=== PATIENT | male | born 1940 | race Caucasian/White ===

== ENCOUNTER → 2016-11-29 | Outpatient (REF) | payer MEDICARE | LOC: M LAB REF 09:30 | DX: C44.311 Basal cell carcinoma of skin of nose (principal) ==

== ENCOUNTER → 2021-07-28 | Outpatient (REF) | payer MEDICARE ==
[2021-07-28 14:16] LABS: CREATININE, URINE 93.2 MG/DL; MALB URINE SIEMENS 18.4 MG/L; MAU/CREAT RATIO 19.7 MCG/MG (0.0-30.0)
== END ==
LOC: M LAB REF 12:49
PROVIDERS: ATTEND Nurse Practitioner Family
DX: E11.65 Type 2 diabetes mellitus with hyperglycemia (principal)

== ENCOUNTER 2024-06-12 07:41 | Day surgery (SDC) | payer MEDICARE ==
[~2024-06-12] VITALS: Ht 165.1 cm; Wt 80.6 kg
[~2024-06-12 07:41] MED LIST: ATOR40TA75 PO; FAMO20TA PO; GARL500C6 PO; LISI10TA22 PO; METF500T13 PO; METO1TAB32 PO; OMEG10002 PO; PHENYLEPHRINE 10% OPHTH SOL 5ML OD PRN; SYNT50TA PO; THERTAB52 PO; TRAZ-252 PO; TRUL0.5I SC; fentaNYL 100 MCG/2 ML INJECTION As Ordered ONE; omega xl PO
[2024-06-12] MEDS: LIDOCAINE 3.5 % 1ML OPHTH TOPICAL GEL OU ONE (09:30)
[2024-06-12] MEDS: OFLOXACIN 0.3 % (OCUFLOX) OPTH SOL 5ML OD ONE (09:30)
[2024-06-12] MEDS: ATROPINE SULFATE 1% OPHTH SOLN 2ML BTL OD SCH (10:04)
[2024-06-12] MEDS: PHENYLEPHRINE 2.5% OPHTH SOL 2ML OD SCH (10:04)
[2024-06-12] MEDS: TROPICAMIDE 1% OPHTH SOLN 15ML OD SCH (10:04)
[2024-06-12] MEDS: LIDOCAINE 1% SDV 5ML VIAL As Ordered ONE (10:06)
[2024-06-12] MEDS: BSS IRRIG/VANCO(10MG)/TOBRA(5MG)/EPINEPH(1:1000-0.5CC)500ML BAG-ORONLY As Ordered ONE (10:06)
[2024-06-12] MEDS: CEFUROXIME 1MG/0.1ML INTRACAMERAL INJ As Ordered ONE (10:06)
[2024-06-12 10:15] VITALS: BP 166/77; TEMP 97.2; O2SAT 99
== END 2024-06-12 10:25 | disposition home or self-care (01) ==
LOC: M SDC 07:41
PROVIDERS: ATTEND Ophthalmology
DX: H25.11 Age-related nuclear cataract, right eye (principal); I25.10 Atherosclerotic heart disease of native coronary artery without angina pectoris; I25.2 Old myocardial infarction; I10 Essential (primary) hypertension; E11.9 Type 2 diabetes mellitus without complications; E03.9 Hypothyroidism, unspecified; K21.9 Gastro-esophageal reflux disease without esophagitis; Z79.899 Other long term (current) drug therapy; Z79.84 Long term (current) use of oral hypoglycemic drugs; Z98.61 Coronary angioplasty status
CPT/HCPCS: 66984; J0697; J3010; V2632

== ENCOUNTER 2024-06-19 09:04 | Day surgery (SDC) | payer MEDICARE ==
[~2024-06-19] VITALS: Ht 165.1 cm; Wt 80.3 kg
[~2024-06-19 09:04] MED LIST changes: -PHENYLEPHRINE 10% OPHTH SOL 5ML OD PRN; +PHENYLEPHRINE 10% OPHTH SOL 5ML OS PRN; -fentaNYL 100 MCG/2 ML INJECTION As Ordered ONE
[2024-06-19] MEDS ORDERED: MIDAZOLAM INJ 2MG/2ML VIAL As Ordered ONE (09:21)
[2024-06-19] MEDS ORDERED: fentaNYL 100 MCG/2 ML INJECTION As Ordered ONE (09:22)
[2024-06-19] MEDS: ATROPINE SULFATE 1% OPHTH SOLN 2ML BTL OS SCH (10:55)
[2024-06-19] MEDS: LIDOCAINE 3.5 % 1ML OPHTH TOPICAL GEL OU ONE (10:55)
[2024-06-19] MEDS: PHENYLEPHRINE 2.5% OPHTH SOL 2ML OS SCH (10:55)
[2024-06-19] MEDS: OFLOXACIN 0.3 % (OCUFLOX) OPTH SOL 5ML OS ONE (10:55)
[2024-06-19] MEDS: TROPICAMIDE 1% OPHTH SOLN 15ML OS SCH (10:55)
[2024-06-19] MEDS: BSS IRRIG/VANCO(10MG)/TOBRA(5MG)/EPINEPH(1:1000-0.5CC)500ML BAG-ORONLY As Ordered ONE (11:45)
[2024-06-19] MEDS: LIDOCAINE 1% SDV 5ML VIAL As Ordered ONE (11:45)
[2024-06-19] MEDS: CEFUROXIME 1MG/0.1ML INTRACAMERAL INJ As Ordered ONE (11:45)
[2024-06-19 11:55] VITALS: BP 154/83; TEMP 97.8; O2SAT 95
== END 2024-06-19 12:14 | disposition home or self-care (01) ==
LOC: M SDC 09:04
PROVIDERS: ATTEND Ophthalmology
DX: E11.36 Type 2 diabetes mellitus with diabetic cataract (principal); H25.12 Age-related nuclear cataract, left eye; I10 Essential (primary) hypertension; E03.9 Hypothyroidism, unspecified; I25.10 Atherosclerotic heart disease of native coronary artery without angina pectoris; I25.2 Old myocardial infarction; Z79.899 Other long term (current) drug therapy; Z79.84 Long term (current) use of oral hypoglycemic drugs; Z79.890 Hormone replacement therapy; Z79.85 Long-term (current) use of injectable non-insulin antidiabetic drugs; K21.9 Gastro-esophageal reflux disease without esophagitis; Z85.828 Personal history of other malignant neoplasm of skin; Z95.1 Presence of aortocoronary bypass graft; Z90.89 Acquired absence of other organs
CPT/HCPCS: 66984; J0697; J2250; J3010; V2632